=== PATIENT | male | born 1950 | race Caucasian/White ===

== ENCOUNTER 2020-10-30 10:43 | Outpatient (RCR) | payer MEDICARE, OTHER | END 2021-01-28 | disposition home or self-care (01) | LOC: ONC 10:43 | PROVIDERS: ATTEND Radiology Radiation Oncology | DX: C44.219 Basal cell carcinoma of skin of left ear and external auricular canal (principal) | CPT/HCPCS: 99213 ==

== ENCOUNTER 2021-06-18 11:27 | Outpatient (RCR) | payer MEDICARE, OTHER | END 2021-07-09 | disposition home or self-care (01) | LOC: ONC 11:27 | PROVIDERS: ATTEND Radiology Radiation Oncology | DX: C44.219 Basal cell carcinoma of skin of left ear and external auricular canal (principal) | CPT/HCPCS: 99213 ==

== ENCOUNTER 2021-12-17 09:25 | Outpatient (RCR) | payer MEDICARE, OTHER | END 2022-01-08 | disposition home or self-care (01) | LOC: ONC 09:25 | PROVIDERS: ATTEND Radiology Radiation Oncology | DX: C44.219 Basal cell carcinoma of skin of left ear and external auricular canal (principal) | CPT/HCPCS: 99213 ==

== ENCOUNTER 2022-06-10 09:18 | Outpatient (RCR) | payer MEDICARE, OTHER | END 2022-07-09 | disposition home or self-care (01) | LOC: ONC 09:18 | PROVIDERS: ATTEND Radiology Radiation Oncology | DX: C44.219 Basal cell carcinoma of skin of left ear and external auricular canal (principal) | CPT/HCPCS: 99213 ==